=== PATIENT | female | born 1945 | race African-American/Black ===

== ENCOUNTER 2018-10-31 22:20 | Emergency (ER) | payer MEDICARE ==
[2018-10-31 23:02] LABS: Clarity Clear (Clear); Leukocyte Negative (Negative); Nitrite Negative (Negative); Protein, Urine (Dipstick) 100 mg/dL (Neg-Trace); pH, Urine 5.5 (5.0-9.0)
[2018-10-31 23:03] LABS: Bilirubin Negative (Negative); Blood, Urine Negative (Negative); Glucose, Urine (Dipstick) Negative (Negative); Urobilinogen 0.2 mg/dL (0.2-1.0)
[2018-10-31 23:05] LABS: #Basophils 0.2 thou/uL (0.0-0.2); #Lymphocytes 2.4 thou/uL (1.20-3.40); #Monocytes 1.1 thou/uL (0.11-0.59); #Neutrophils 16.2 thou/uL (1.40-6.50); %Basophils 0.9 % (0.0-1.0); %Eosinophils 0.2 % (0.0-10.0); %Lymphocytes 11.9 % (21.0-51.0); %Monocytes 5.4 % (0.0-10.0); %Neutrophils 81.5 % (42.0-75.0); Hemoglobin 12.8 g/dL (12.0-16.0); Mean Corpuscular HGB CONC 33.1 g/dL (32.0-36.0); Mean Corpuscular Hemoglobin 27.6 pg (27.0-31.0); Mean Corpuscular Volume 83.3 fL (78.0-98.0); Mean Platelet Volume 7.9 fL (7.4-10.4); Platelet Count 239 thou/uL (130-400); RBC Distribution Width 14.7 % (11.5-14.5); Red Blood Cell (RBC) Count 4.65 mill/uL (4.20-5.40); White Blood Cell (WBC) Count 19.9 thou/uL (4.8-10.8)
[2018-10-31 23:09] LABS: Bacteria/HPF Rare-Few HPF (None Seen); RBC/HPF 0-3 HPF (0-3); Squamous Epithelial 0-3 HPF (0-3); WBC/HPF 0-3 HPF (0-3)
[2018-10-31 23:10] LABS: Yeast-All Forms 1+ HPF (None Seen)
[2018-10-31 23:14] LABS: ALT (SGPT) 24 U/L (8-55); AST (SGOT) 23 U/L (5-34); Alkaline Phosphatase 109 U/L (40-150); Anion Gap 15 mmol/L (10-20); BUN (Urea Nitrogen) 23 mg/dL (9.8-20.1); Bilirubin, Total 0.4 mg/dL (0.2-1.2); Calc. Creatinine Clearance 0 mL/min (70-130); Calcium 9.8 mg/dL (7.8-10.44); Carbon Dioxide 27 mmol/L (23-31); Chloride 102 mmol/L (98-107); Estimated GFR-MDRD 43; Globulin 3.6 g/dL (2.4-3.5); Glucose 83 mg/dL (83-110); Potassium 3.5 mmol/L (3.5-5.1); Protein, Total 7.6 g/dL (6.0-8.3); Sodium 140 mmol/L (136-145)
--- NOTE | 2018-11-01 07:37 | RAD ---
PORTABLE CHEST: DATE: 10/31/2018. FINDINGS: An AP portable film at 2248 is compared with a 07/17/[address] [facility]. There has been no adverse interval change. The heart is normal in size and the lungs are clear. The re is no sign of pneumonia or pleural effusion. Calcification is noted in the aortic arch. The medi astinum appears normal. IMPRESSION: No acute thoracic finding. POS: HOME
== END 2018-11-01 00:05 | disposition home or self-care (01) ==
LOC: BURERS 22:20
DX: E11.649 Type 2 diabetes mellitus with hypoglycemia without coma (principal); I10 Essential (primary) hypertension; Z79.4 Long term (current) use of insulin; Z79.899 Other long term (current) drug therapy
CPT/HCPCS: 36416; 71045; 80053; 81003; 81015; 85025; 36415-59

== ENCOUNTER 2018-12-28 21:33 | Emergency (ER) | payer MEDICARE ==
[2018-12-28] MEDS ORDERED: Acetaminophen 500 MG TAB ONE (23:08)
--- NOTE | 2018-12-29 08:48 | CT ---
PRELIMINARY REPORT/[facility]/EMERGENCY AFTER HOURS PROCEDURE: EXAM: CT Head Without Contrast EXAM DATE/TIME: 12/28/2018 10:01 PM CLINICAL HISTORY: 73 years old, female; Injury or trauma; Fall; Initial encounter; Blunt trauma (contusions or hematoma s); Consciousness not specified; Injury date: 12/28/18 TECHNIQUE: Axial computed tomography images of the head/brain without contrast. All CT scans at this facility use at least one of these dose optimization techniques: automated expos ure control; mA and/or kV adjustment per patient size (includes targeted exams where dose is matched to clinical indication); or iterative reconstruction. COMPARISON: No relevant prior studies available. FINDINGS: Brain: No evidence of acute intracranial hemorrhage, extraxial fluid or midline shift. Mild low densi ty changes within the white matter bilaterally. Cerebellum atrophic; otherwise, posterior fossa struc tures within normal limits. Ventricles: Mild prominence of the cerebral sulci and ventricles. Bones/joints: Unremarkable. No acute fracture. Sinuses: Visualized sinuses are unremarkable. No acute sinusitis. Mastoid air cells: Visualized mastoid air cells are unremarkable. No mastoid effusion. Soft tissues: Unremarkable. IMPRESSION: 1. No evidence of acute intracranial hemorrhage, extraxial fluid or midline shift. 2. Mild cerebral atrophy. 3. 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 Thank you for allowing us to participate in the care of your patient. Dictated and Authenticated by: Germain Kenny MD 12/28/2018 10:53 PM Central Time ([place] & [place]) FINAL REPORT EMERGENCY AFTER HOURS BRAIN CT WITHOUT IV CONTRAST: Date: 12/28/18 Time: 2202 hours There is atrophy and chronic white matter ischemic change. No mass or bleed, or other acute process. Report in agreement with preliminary report given on-call by [facility]. POS: [facility]
--- NOTE | 2018-12-29 09:00 | RAD ---
LEFT KNEE 4 VIEWS: Date: 12/28/18 HISTORY: Injury. FINDINGS: Mild degenerative changes. No fracture, dislocation, or other acute process. IMPRESSION: Degenerative change without fracture or dislocation. POS: [facility]
== END 2018-12-28 23:14 | disposition home or self-care (01) ==
LOC: BURERS 21:33
DX: S09.90XA Unspecified injury of head, initial encounter (principal); S83.92XA Sprain of unspecified site of left knee, initial encounter; E11.9 Type 2 diabetes mellitus without complications; I10 Essential (primary) hypertension; Z87.891 Personal history of nicotine dependence; Z79.899 Other long term (current) drug therapy; W19.XXXA Unspecified fall, initial encounter
CPT/HCPCS: 70450

== ENCOUNTER 2019-01-10 10:50 | Emergency (ER) | payer MEDICARE ==
[2019-01-10] MEDS ORDERED: traMADol HCl 50 MG TAB ONE (11:50)
--- NOTE | 2019-01-10 12:43 | CT ---
CT CERVICAL SPINE: 01/10/2019 TECHNIQUE: A spiral CT of the cervical spine was done following trauma. Axial slices were acquired, followed by coronal and sagittal reconstructions. FINDINGS: No fracture, dislocation, or disk space narrowing is seen. The C1 to dens distance is normal, and th e soft tissues are normal in thickness. Findings by level follow: C1-C2: No acute findings. C2-C3: No acute findings. C3-C4: Some facet arthritis on the left. C4-C5: No acute findings. C5-C6: Facet arthritis slightly prominent on the left compared to the right. Mild concentric disk o steophyte complex is present. There is some mild bilateral foraminal narrowing. C6-C7: No acute findings. C7-T1: No acute findings. T1-T2: No acute findings. The lung apices are clear and show no pneumothorax. There is a lucent area in the right lobe of the thyroid gland and possibly some on the left. The largest lucency is in the lower pole of the right l obe and measures 1.2 cm in size. Multiple hypoechoic masses have been shown by prior CT and thyroid scanning in 2016. This size is certainly no larger than it was before. IMPRESSION: 1. Degenerative changes but no acute traumatic findings. 2. Thyroid nodules, notably in the right lobe. Known entities that have not grown since 2016. POS: [facility]
== END 2019-01-10 12:00 | disposition home or self-care (01) ==
LOC: BURERS 10:50
DX: S13.9XXA Sprain of joints and ligaments of unspecified parts of neck, initial encounter (principal); Z86.73 Personal history of transient ischemic attack (TIA), and cerebral infarction without residual deficits; E11.9 Type 2 diabetes mellitus without complications; Z79.4 Long term (current) use of insulin; I10 Essential (primary) hypertension; Z87.891 Personal history of nicotine dependence; Z79.899 Other long term (current) drug therapy; W18.30XA Fall on same level, unspecified, initial encounter
CPT/HCPCS: 72125

== ENCOUNTER 2019-03-08 14:27 | Emergency (ER) | payer MEDICARE ==
--- NOTE | 2019-03-08 18:28 | RAD ---
PELVIS ONE VIEW: 03/08/19 No fracture or area of bony destruction was seen. There is slight narrowing of each hip joint but it is symmetrical. The pubic rings are intact. The symphysis shows no widening or off-set. The SI joints are symmetrical. IMPRESSION: No acute finding. POS: HOME
--- NOTE | 2019-03-08 18:29 | RAD ---
LEFT FEMUR: 03/08/19 AP and lateral views show no sign of fracture or bony destruction. The hip joint is narrowed but no d ifferent than the opposite side. There is some ossification in some of the ligaments attaching to the greater trochanter. There is no sign of joint fluid at the knee. IMPRESSION: No acute bony finding. POS: HOME
== END 2019-03-08 16:11 | disposition home or self-care (01) ==
LOC: BURERS 14:27
DX: S76.911A Strain of unspecified muscles, fascia and tendons at thigh level, right thigh, initial encounter (principal); Z86.73 Personal history of transient ischemic attack (TIA), and cerebral infarction without residual deficits; E11.9 Type 2 diabetes mellitus without complications; Z79.4 Long term (current) use of insulin; I10 Essential (primary) hypertension; Z87.891 Personal history of nicotine dependence; Z79.899 Other long term (current) drug therapy; W18.30XA Fall on same level, unspecified, initial encounter
CPT/HCPCS: 72170

== ENCOUNTER 2019-05-10 21:10 | Emergency (ER) | payer MEDICARE ==
[2019-05-10 21:53] LABS: ALT (SGPT) 41 U/L (8-55); AST (SGOT) 90 U/L (5-34); Albumin 4.1 g/dL (3.4-4.8); Alkaline Phosphatase 122 U/L (40-150); Anion Gap 20 mmol/L (10-20); BUN (Urea Nitrogen) 19 mg/dL (9.8-20.1); Bilirubin, Total 0.9 mg/dL (0.2-1.2); CK (CPK) 3116 U/L (29-168); Calc. Creatinine Clearance 0 mL/min (70-130); Calcium 9.9 mg/dL (7.8-10.44); Carbon Dioxide 22 mmol/L (23-31); Chloride 103 mmol/L (98-107); Estimated GFR-MDRD 53; Globulin 3.8 g/dL (2.4-3.5); Glucose 156 mg/dL (83-110); Potassium 4.3 mmol/L (3.5-5.1); Protein, Total 7.9 g/dL (6.0-8.3); Sodium 141 mmol/L (136-145)
--- NOTE | 2019-05-10 21:53 | CT ---
CT HEAD WITHOUT CONTRAST: 05/10/19 INDICATIONS: Found down. Slurred speech. COMPARISON: 12/28/18. Mild ventriculomegaly is again noted, unchanged. Moderate chronic ischemic white matter changes are a gain noted and appear stable. No evidence of hemorrhage, infarct, or mass. No interval change apparen t. Sinuses appear clear. IMPRESSION: Ventriculomegaly and chronic ischemic white matter changes appear stable from the recent study. No ac [place] interval change noted. POS: [facility]
[2019-05-10] MEDS ORDERED: Aspirin Chewable 81 MG TAB ONE (22:04)
[2019-05-10 22:08] LABS: Anisocytosis SLIGHT = 6-15 cells (100X) (0-5/hpf); Eosinophils 2 % (0-10); Hemoglobin 13.7 g/dL (12.0-16.0); Lymphocytes 13 % (21-51); MDiff Complete? YES; Mean Corpuscular HGB CONC 31.8 g/dL (32.0-36.0); Mean Corpuscular Hemoglobin 27.3 pg (27.0-31.0); Mean Platelet Volume 7.3 fL (7.4-10.4); Monocytes 6 % (0-10); Neutrophil 79 % (42-75); Platelet Count 307 thou/uL (130-400); Platelet Morphology Comment Appears Adequate; RBC Distribution Width 15.2 % (11.5-14.5); Red Blood Cell (RBC) Count 5.01 mill/uL (4.20-5.40); White Blood Cell (WBC) Count 17.9 thou/uL (4.8-10.8)
[2019-05-10 22:17] LABS: Bilirubin Small (Negative); Blood, Urine Moderate (Negative); Clarity Cloudy (Clear); Glucose, Urine (Dipstick) Negative (Negative); Leukocyte Small (Negative); Nitrite Negative (Negative); Protein, Urine (Dipstick) > or equal to 300 mg/dL (Neg-Trace); Urobilinogen 0.2 mg/dL (Less than 2)
--- NOTE | 2019-05-10 22:19 | RAD ---
PORTABLE CHEST: 05/10/19 HISTORY: Fall with injury. Lungs appear clear. Heart and mediastinum unremarkable. Osseous structures appear intact. IMPRESSION: No acute abnormality. POS: [facility]
[2019-05-10 22:22] LABS: Squamous Epithelial 0-3 HPF (0-3)
[2019-05-10 22:23] LABS: Bacteria/HPF 2+ HPF (None Seen); Yeast-Budding 4+ HPF (None Seen)
[2019-05-10 22:26] LABS: CKMB 32.6 ng/mL (0-6.6)
--- NOTE | 2019-05-10 22:32 | RAD ---
RIGHT HUMERUS: 05/10/19 Two views. HISTORY: Fall with injury. FINDINGS/IMPRESSION: Degenerative changes of the shoulder with spurring from the humeral head and AC joint. Numerous radio paque pledgets in the humeral head indicate rotator cuff repair. No fracture or acute abnormality bryan ntified. POS: [facility]
== END 2019-05-10 22:46 | disposition short-term general hospital (02) ==
LOC: BURERS 21:10
DX: I21.4 Non-ST elevation (NSTEMI) myocardial infarction (principal); M62.82 Rhabdomyolysis; E11.9 Type 2 diabetes mellitus without complications; I10 Essential (primary) hypertension; F17.210 Nicotine dependence, cigarettes, uncomplicated; Z79.4 Long term (current) use of insulin; Z79.899 Other long term (current) drug therapy; Z86.73 Personal history of transient ischemic attack (TIA), and cerebral infarction without residual deficits; W19.XXXA Unspecified fall, initial encounter
CPT/HCPCS: 36416; 51701; 70450; 71045; 80053; 81003; 81015; 82550; 82553; 83605; 84484; 85025; 87086; 93005; A4353

== ENCOUNTER 2019-05-16 16:58 | Inpatient (IN) | payer MEDICARE ==
[2019-05-17] MEDS ORDERED: Dextrose 50% Abboject 50 ML SYRINGE SLOW IVP PRN ×2 (06:23→06:26)
[2019-05-17] MEDS ORDERED: Dextrose 5% in Water 1,000 ML IV PRN ×2 (06:23→06:26)
[2019-05-17] MEDS ORDERED: CHOLECALCIFEROL PO SCH (09:00)
[2019-05-17] MEDS ORDERED: INSULIN DEGLUDEC 30 UNIT SQ SCH (09:00)
[2019-05-17] MEDS: Levothyroxine Sodium 50 MCG TAB PO SCH (09:28)
[2019-05-17] MEDS: hydrALAZINE 25 MG TAB PO SCH ×3 (09:29→21:15)
[2019-05-17] MEDS: cloNIDine 0.1 MG TAB PO SCH ×2 (09:31→21:16)
[2019-05-17] MEDS: Oxybutynin 5 MG TAB PO SCH ×2 (09:31→21:16)
[2019-05-17] MEDS: Fluconazole 100 MG TAB PO SCH (09:31)
[2019-05-17] MEDS: Aspirin 325 mg Enteric Coated Tablet PO SCH (09:32)
[2019-05-17] MEDS: Carvedilol 6.25 MG TAB PO SCH ×2 (09:34→21:16)
[2019-05-17] MEDS: Polyethylene Glycol 3350 17 GM Packet PO PRN (09:44)
[2019-05-17] MEDS: Docusate 100 MG CAP PO PRN (09:44)
[2019-05-17] MEDS: TRESIBA U SC SCH ×2 (11:12→13:09)
[2019-05-17] MEDS: Acetaminophen 325 MG TAB PO PRN (13:03)
[2019-05-17] MEDS: HumaLOG 300 UNITS/3 ML VIAL SC PRN ×2 (13:10→18:28)
[2019-05-17] MEDS: Atorvastatin Calcium 40 MG TAB PO SCH (21:16)
[2019-05-18] MEDS: hydrALAZINE 25 MG TAB PO SCH ×3 (08:52→20:36)
[2019-05-18] MEDS: Fluconazole 100 MG TAB PO SCH (08:52)
[2019-05-18] MEDS: Oxybutynin 5 MG TAB PO SCH ×2 (08:52→20:37)
[2019-05-18] MEDS: Aspirin 325 mg Enteric Coated Tablet PO SCH (08:52)
[2019-05-18] MEDS: cloNIDine 0.1 MG TAB PO SCH ×2 (08:53→20:37)
[2019-05-18] MEDS: Levothyroxine Sodium 50 MCG TAB PO SCH (08:53)
[2019-05-18] MEDS: Carvedilol 6.25 MG TAB PO SCH ×2 (08:53→20:37)
[2019-05-18] MEDS: TRESIBA U SC SCH (09:02)
[2019-05-18] MEDS: Atorvastatin Calcium 40 MG TAB PO SCH (20:36)
[2019-05-18] MEDS: Acetaminophen 325 MG TAB PO PRN (20:37)
[2019-05-19] MEDS: TRESIBA U SC SCH ×2 (08:26→09:00)
[2019-05-19] MEDS: Fluconazole 100 MG TAB PO SCH (08:27)
[2019-05-19] MEDS: Oxybutynin 5 MG TAB PO SCH ×2 (08:27→20:28)
[2019-05-19] MEDS: Levothyroxine Sodium 50 MCG TAB PO SCH (08:27)
[2019-05-19] MEDS: Aspirin 325 mg Enteric Coated Tablet PO SCH (08:27)
[2019-05-19] MEDS: hydrALAZINE 25 MG TAB PO SCH ×3 (08:31→20:27)
[2019-05-19] MEDS: Carvedilol 6.25 MG TAB PO SCH ×2 (08:32→20:27)
[2019-05-19] MEDS: Acetaminophen 325 MG TAB PO PRN ×2 (08:37→18:06)
[2019-05-19] MEDS: HumaLOG 300 UNITS/3 ML VIAL SC PRN ×3 (08:38→17:26)
[2019-05-19] MEDS: cloNIDine 0.1 MG TAB PO SCH ×2 (08:50→20:28)
[2019-05-19] MEDS: Atorvastatin Calcium 40 MG TAB PO SCH (20:29)
[2019-05-20] MEDS: Carvedilol 6.25 MG TAB PO SCH ×2 (08:11→20:26)
[2019-05-20] MEDS: Levothyroxine Sodium 50 MCG TAB PO SCH (08:11)
[2019-05-20] MEDS: Aspirin 325 mg Enteric Coated Tablet PO SCH (08:11)
[2019-05-20] MEDS: cloNIDine 0.1 MG TAB PO SCH ×2 (08:12→20:25)
[2019-05-20] MEDS: hydrALAZINE 25 MG TAB PO SCH ×3 (08:12→20:26)
[2019-05-20] MEDS: Fluconazole 100 MG TAB PO SCH (08:13)
[2019-05-20] MEDS: Oxybutynin 5 MG TAB PO SCH ×2 (08:13→20:25)
[2019-05-20] MEDS: TRESIBA U SC SCH ×2 (08:33→08:45)
[2019-05-20] MEDS: HumaLOG 300 UNITS/3 ML VIAL SC PRN ×2 (12:33→17:13)
--- NOTE | 2019-05-20 19:52 | HP ---
CHIEF COMPLAINT: Inpatient rehabilitation for physical and occupational therapy. HISTORY OF PRESENT ILLNESS: Ms. Blair is a 74-year-old female with progressive dementia, with multiple falls, history of TIA, diabetes mellitus, non-insulin requiring and hypertension. The patient was found down on May 11, 2019 at home. Initial workup at the emergency room showed elevated creatine kinase with normal EKG, with concern for possible non ST-segment elevation DE, she had a normal echocardiogram in 2014 with no previous cardiac history of DE. The patient was admitted for rhabdomyolysis with possible non ST-segment elevation myocardial infarction and urinary tract infection. Labs showed a normal comprehensive metabolic panel with abnormal urinalysis. She had a normal CT scan of maxillofacial. However, brain CT scan showed ventriculomegaly with chronic ischemic white matter changes. Chest x-ray was normal. Right humeral showed degenerative changes with spurring. The patient was subsequently seen by Cardiology, repeat labs showed elevated troponin, CK and CK-MB with rhabdomyolysis. EKG did not show ST-segment elevation DE. Echocardiogram on 05/11 showed ejection fraction of 50% to 55% with diastolic dysfunction with mild mitral regurgitation, aortic regurgitation, and tricuspid regurgitation. During her hospitalization, she was treated for UTI, culture grew yeast and subsequently changed to antifungal medication. Her rhabdomyolysis improved with IV fluid therapy. The patient was referred for extended nursing home care with physical and occupational therapy. Prior to her transfer, the patient was ambulating 50 feet using rolling walker with contact guard assist, she has significant gait instability, decreased balance, decreased endurance and strength, hence this admission. This afternoon, she denies any complaints. PAST MEDICAL HISTORY: 1. History of TIA. 2. Advancing dementia. 3. Gxu-[id number]-hlavkhufa diabetes mellitus. 4. Hypertension. PAST SURGICAL HISTORY: 1. Appendectomy. 2. Hysterectomy. 3. Left shoulder surgery. 4. Right shoulder surgery. 5. Left carpal tunnel release. SOCIAL HISTORY: The patient lives alone. She smokes in the past, quit 10 years ago. She has children who are alive and well. FAMILY HISTORY: Noncontributory. MEDICATIONS: 1. Aspirin 325 mg daily. 2. Lipitor 40 mg at bedtime. 3. Carvedilol 6.25 mg b.i.d. 4. Cholecalciferol 1000 units daily. 5. Clonidine 0.1 mg b.i.d. 6. Fluconazole 100 mg daily. 7. Hydralazine 100 mg t.i.d. 8. Levothyroxine 50 mcg daily. 9. Oxybutynin 5 mg b.i.d. 10. Protonix 40 mg b.i.d. 11. MiraLAX 17 g daily p.r.n. for constipation. 12. Tylenol 650 mg daily. ALLERGIES: PENICILLIN. CODE STATUS: Full code. REVIEW OF SYSTEMS: CONSTITUTIONAL: Negative for fever, chills, unintentional weight gain or unintentional weight loss. ENT: Negative for epistaxis or bleeding gums. Negative for sore throat. CARDIOVASCULAR: Negative for chest pain. Negative for edema. RESPIRATORY: Negative for hemoptysis. Negative for wheezing. GASTROINTESTINAL: Negative for hematochezia or melena. Positive for constipation. GENITOURINARY: Negative for dysuria or hematuria. MUSCULOSKELETAL: Positive for occasional arthralgias, back pain, and myalgias. INTEGUMENT: Negative for jaundice or rash. NEUROLOGIC: Positive for history of questionable syncope, negative for headaches. Negative for paresthesias. Positive for weakness. HEMATOLOGIC: Negative for bruising, bleeding, or lymphadenopathy. ALLERGIC/IMMUNOLOGIC: Negative for seasonal allergies or urticaria. PSYCHIATRIC: Negative for anxiety, depression or sleep disturbances. PHYSICAL EXAMINATION: VITAL SIGNS: Blood pressure of 118/59, temperature of 98.1, pulse of 60, R of 18, O2 saturation 98% on room air. GENERAL: The patient is alert, oriented x2 (person and place). HEENT: Normocephalic, atraumatic. Pupils equal, reactive to light. NECK: Supple. Negative for lymphadenopathy. CHEST AND LUNGS: Symmetrical expansion. Clear to auscultation. HEART: Regular rate, rhythm. Negative for murmur. ABDOMEN: Obese, soft, nontender. Normoactive bowel sounds. Negative for CVA tenderness. EXTREMITIES: Symmetrical movement of both upper and lower extremities. PSYCH: Appropriate affect and demeanor. LABS AND IMAGING: Reviewed. ASSESSMENT: 1. Physical deconditioning. 2. Rhabdomyolysis. 3. Type 2 myocardial infarction. 4. Urinary tract infection secondary to yeast infection. 5. Metabolic encephalopathy, resolved. 6. Hypokalemia, corrected. 7. Hypothyroidism. 8. Hypertension. 9. Advancing dementia. 10. Gastroesophageal reflux disease. 11. Diabetes mellitus, non-insulin requiring. 12. Multiple falls. 13. Chronic kidney disease stage 2. PLAN: The patient admitted for nursing home care with physical and occupational therapy after hospitalization secondary to rhabdomyolysis, non ST-segment elevation DE and urinary tract infection. Prognosis for significant improvement with reasonable time appears fair. The patient will participate with physical and occupational therapy to address strength, range of motion, transfer training, gait transfer, family training and safety training with progression to home exercises. We will reconcile hospital medication and adjust dosages prior to her discharge. manager company to address how the patient can be discharged safely and in timely manner. Job ID: [id number]
[2019-05-20] MEDS: Atorvastatin Calcium 40 MG TAB PO SCH (20:26)
[2019-05-21] MEDS: Carvedilol 6.25 MG TAB PO SCH ×2 (08:30→20:32)
[2019-05-21] MEDS: Fluconazole 100 MG TAB PO SCH (08:30)
[2019-05-21] MEDS: Docusate 100 MG CAP PO PRN (08:30)
[2019-05-21] MEDS: cloNIDine 0.1 MG TAB PO SCH ×2 (08:30→20:31)
[2019-05-21] MEDS: Oxybutynin 5 MG TAB PO SCH ×2 (08:30→20:32)
[2019-05-21] MEDS: Levothyroxine Sodium 50 MCG TAB PO SCH (08:30)
[2019-05-21] MEDS: Aspirin 325 mg Enteric Coated Tablet PO SCH (08:30)
[2019-05-21] MEDS: TRESIBA U SC SCH (08:35)
[2019-05-21] MEDS: hydrALAZINE 25 MG TAB PO SCH ×3 (09:08→20:32)
[2019-05-21] MEDS: HumaLOG 300 UNITS/3 ML VIAL SC PRN ×2 (12:40→17:32)
[2019-05-21] MEDS: Atorvastatin Calcium 40 MG TAB PO SCH (20:31)
[2019-05-22] MEDS: Oxybutynin 5 MG TAB PO SCH ×2 (08:23→20:46)
[2019-05-22] MEDS: cloNIDine 0.1 MG TAB PO SCH ×2 (08:24→20:46)
[2019-05-22] MEDS: Aspirin 325 mg Enteric Coated Tablet PO SCH (08:24)
[2019-05-22] MEDS: Docusate 100 MG CAP PO PRN (08:24)
[2019-05-22] MEDS: hydrALAZINE 25 MG TAB PO SCH ×3 (08:26→20:46)
[2019-05-22] MEDS: Levothyroxine Sodium 50 MCG TAB PO SCH (08:27)
[2019-05-22] MEDS: Carvedilol 6.25 MG TAB PO SCH ×2 (08:27→20:46)
[2019-05-22] MEDS: TRESIBA U SC SCH (08:34)
[2019-05-22] MEDS: Fluconazole 100 MG TAB PO SCH (09:13)
[2019-05-22] MEDS: HumaLOG 300 UNITS/3 ML VIAL SC PRN (14:43)
[2019-05-22] MEDS: Atorvastatin Calcium 40 MG TAB PO SCH (20:45)
[2019-05-23] MEDS: Aspirin 325 mg Enteric Coated Tablet PO SCH (08:53)
[2019-05-23] MEDS: Fluconazole 100 MG TAB PO SCH (08:53)
[2019-05-23] MEDS: Docusate 100 MG CAP PO PRN (08:53)
[2019-05-23] MEDS: Polyethylene Glycol 3350 17 GM Packet PO PRN (08:53)
[2019-05-23] MEDS: Oxybutynin 5 MG TAB PO SCH ×2 (08:54→22:01)
[2019-05-23] MEDS: Levothyroxine Sodium 50 MCG TAB PO SCH (08:54)
[2019-05-23] MEDS: cloNIDine 0.1 MG TAB PO SCH ×2 (08:55→22:00)
[2019-05-23] MEDS: hydrALAZINE 25 MG TAB PO SCH ×3 (08:55→21:59)
[2019-05-23] MEDS: TRESIBA U SC SCH (08:56)
[2019-05-23] MEDS: Carvedilol 6.25 MG TAB PO SCH ×2 (08:56→22:00)
[2019-05-23] MEDS: HumaLOG 300 UNITS/3 ML VIAL SC PRN (12:33)
[2019-05-23] MEDS ORDERED: hydrALAZINE 10 MG TAB PO SCH (21:30)
[2019-05-23] MEDS: Atorvastatin Calcium 40 MG TAB PO SCH (22:00)
[2019-05-24] MEDS: Carvedilol 6.25 MG TAB PO SCH ×2 (08:57→21:00)
[2019-05-24] MEDS: Aspirin 325 mg Enteric Coated Tablet PO SCH (08:57)
[2019-05-24] MEDS: cloNIDine 0.1 MG TAB PO SCH ×2 (08:58→21:04)
[2019-05-24] MEDS: Oxybutynin 5 MG TAB PO SCH ×2 (08:59→21:00)
[2019-05-24] MEDS: TRESIBA U SC SCH (08:59)
[2019-05-24] MEDS: Fluconazole 100 MG TAB PO SCH (08:59)
[2019-05-24] MEDS: Levothyroxine Sodium 50 MCG TAB PO SCH (08:59)
[2019-05-24] MEDS: hydrALAZINE 25 MG TAB PO SCH ×3 (12:08→21:26)
[2019-05-24] MEDS: HumaLOG 300 UNITS/3 ML VIAL SC PRN (12:29)
[2019-05-24] MEDS: Atorvastatin Calcium 40 MG TAB PO SCH (21:00)
[2019-05-24] MEDS ORDERED: hydrALAZINE 20 MG/ML VIAL ONE (21:17)
[2019-05-24] MEDS ORDERED: hydrOXYzine 25 MG TAB ONE ×2 (21:17→21:19)
[2019-05-25] MEDS: TRESIBA U SC SCH ×2 (08:28→08:35)
[2019-05-25] MEDS: Oxybutynin 5 MG TAB PO SCH ×2 (08:29→20:50)
[2019-05-25] MEDS: Docusate 100 MG CAP PO PRN (08:32)
[2019-05-25] MEDS: Aspirin 325 mg Enteric Coated Tablet PO SCH (08:32)
[2019-05-25] MEDS: Levothyroxine Sodium 50 MCG TAB PO SCH (08:32)
[2019-05-25] MEDS: Fluconazole 100 MG TAB PO SCH (08:36)
[2019-05-25] MEDS: hydrALAZINE 25 MG TAB PO SCH ×3 (08:44→20:51)
[2019-05-25] MEDS: cloNIDine 0.1 MG TAB PO SCH ×2 (08:45→20:51)
[2019-05-25] MEDS: Carvedilol 6.25 MG TAB PO SCH ×2 (08:45→20:51)
[2019-05-25] MEDS: HumaLOG 300 UNITS/3 ML VIAL SC PRN ×2 (12:57→17:19)
[2019-05-25] MEDS ORDERED: Losartan Potassium 50 MG TAB PO SCH (13:15)
[2019-05-25] MEDS: Atorvastatin Calcium 40 MG TAB PO SCH (20:51)
[2019-05-26] MEDS: Carvedilol 6.25 MG TAB PO SCH ×2 (09:51→21:22)
[2019-05-26] MEDS: Aspirin 325 mg Enteric Coated Tablet PO SCH (09:51)
[2019-05-26] MEDS: cloNIDine 0.1 MG TAB PO SCH ×2 (09:52→21:22)
[2019-05-26] MEDS: hydrALAZINE 25 MG TAB PO SCH ×3 (09:53→21:21)
[2019-05-26] MEDS: Levothyroxine Sodium 50 MCG TAB PO SCH (09:53)
[2019-05-26] MEDS: Oxybutynin 5 MG TAB PO SCH ×2 (09:54→21:22)
[2019-05-26] MEDS: HumaLOG 300 UNITS/3 ML VIAL SC PRN (17:37)
[2019-05-26] MEDS: Atorvastatin Calcium 40 MG TAB PO SCH (21:22)
[2019-05-27] MEDS: Aspirin 325 mg Enteric Coated Tablet PO SCH (09:05)
[2019-05-27] MEDS: hydrALAZINE 25 MG TAB PO SCH ×3 (09:05→20:58)
[2019-05-27] MEDS: Oxybutynin 5 MG TAB PO SCH ×2 (09:06→20:59)
[2019-05-27] MEDS: Carvedilol 6.25 MG TAB PO SCH ×2 (09:06→21:00)
[2019-05-27] MEDS: Levothyroxine Sodium 50 MCG TAB PO SCH (09:06)
[2019-05-27] MEDS: cloNIDine 0.1 MG TAB PO SCH ×2 (09:07→20:59)
[2019-05-27] MEDS: TRESIBA U SC SCH (09:09)
[2019-05-27] MEDS: HumaLOG 300 UNITS/3 ML VIAL SC PRN (12:52)
[2019-05-27] MEDS: Atorvastatin Calcium 40 MG TAB PO SCH (20:59)
[2019-05-28 05:08] VITALS: BMI 27.2
[2019-05-28 05:27] LABS: #Basophils 0.1 thou/uL (0.0-0.2); #Eosinphils 0.2 thou/uL (0.0-0.7); #Lymphocytes 2.7 thou/uL (1.20-3.40); #Monocytes 0.8 thou/uL (0.11-0.59); #Neutrophils 6.2 thou/uL (1.40-6.50); %Basophils 0.6 % (0.0-1.0); %Eosinophils 1.8 % (0.0-10.0); %Lymphocytes 27.5 % (21.0-51.0); %Neutrophils 62.1 % (42.0-75.0); Hemoglobin 11.5 g/dL (12.0-16.0); Mean Corpuscular Volume 86.9 fL (78.0-98.0); Mean Platelet Volume 8.3 fL (7.4-10.4); Platelet Count 267 thou/uL (130-400); RBC Distribution Width 15.1 % (11.5-14.5); Red Blood Cell (RBC) Count 4.26 mill/uL (4.20-5.40); White Blood Cell (WBC) Count 9.9 thou/uL (4.8-10.8)
[2019-05-28 05:35] LABS: ALT (SGPT) 44 U/L (8-55); AST (SGOT) 40 U/L (5-34); Albumin 3.3 g/dL (3.4-4.8); Alkaline Phosphatase 95 U/L (40-150); Anion Gap 13 mmol/L (10-20); BUN (Urea Nitrogen) 20 mg/dL (9.8-20.1); Bilirubin, Total 0.3 mg/dL (0.2-1.2); Calc. Creatinine Clearance 46 mL/min (70-130); Calcium 9.3 mg/dL (7.8-10.44); Carbon Dioxide 26 mmol/L (23-31); Chloride 108 mmol/L (98-107); Estimated GFR-MDRD 46; Globulin 3.4 g/dL (2.4-3.5); Glucose 60 mg/dL (83-110); Potassium 3.6 mmol/L (3.5-5.1); Protein, Total 6.7 g/dL (6.0-8.3); Sodium 143 mmol/L (136-145)
[2019-05-28] MEDS: hydrALAZINE 25 MG TAB PO SCH ×3 (08:45→21:21)
[2019-05-28] MEDS: Carvedilol 6.25 MG TAB PO SCH ×2 (08:46→21:22)
[2019-05-28] MEDS: Levothyroxine Sodium 50 MCG TAB PO SCH (08:46)
[2019-05-28] MEDS: cloNIDine 0.1 MG TAB PO SCH ×2 (08:47→21:22)
[2019-05-28] MEDS: Oxybutynin 5 MG TAB PO SCH ×2 (08:47→21:23)
[2019-05-28] MEDS: Aspirin 325 mg Enteric Coated Tablet PO SCH (08:47)
[2019-05-28] MEDS: TRESIBA U SC SCH (08:48)
[2019-05-28 12:15] LABS: Hemoglobin A1c 8.3 % (4.0-6.0)
[2019-05-28] MEDS: HumaLOG 300 UNITS/3 ML VIAL SC PRN (13:07)
[2019-05-28] MEDS: Atorvastatin Calcium 40 MG TAB PO SCH (21:23)
[2019-05-29 09:05] LABS: Glucose 51 mg/dL (83-110)
[2019-05-29] MEDS: Levothyroxine Sodium 50 MCG TAB PO SCH (09:31)
[2019-05-29] MEDS ORDERED: Lantus 1000 UNITS/10 ML VIAL SC SCH (10:30)
[2019-05-29] MEDS: hydrALAZINE 25 MG TAB PO SCH ×3 (10:32→21:21)
[2019-05-29] MEDS: Aspirin 325 mg Enteric Coated Tablet PO SCH (10:32)
[2019-05-29] MEDS: Oxybutynin 5 MG TAB PO SCH ×3 (10:33→21:22)
[2019-05-29] MEDS: cloNIDine 0.1 MG TAB PO SCH ×2 (10:33→21:22)
[2019-05-29] MEDS: Carvedilol 6.25 MG TAB PO SCH ×2 (10:34→21:22)
[2019-05-29] MEDS ORDERED: TRESIBA U SC SCH (10:45)
[2019-05-29] MEDS: TRESIBA U SC SCH (11:11)
[2019-05-29] MEDS: HumaLOG 300 UNITS/3 ML VIAL SC PRN (13:10)
[2019-05-29] MEDS: Atorvastatin Calcium 40 MG TAB PO SCH (21:21)
[2019-05-30 06:03] VITALS: TEMP 98
[2019-05-30] MEDS ORDERED: TRESIBA U SC SCH (09:00)
[2019-05-30] MEDS: Carvedilol 6.25 MG TAB PO SCH (10:00)
[2019-05-30] MEDS: hydrALAZINE 25 MG TAB PO SCH ×2 (10:00→15:00)
[2019-05-30] MEDS: Aspirin 325 mg Enteric Coated Tablet PO SCH (10:00)
[2019-05-30] MEDS: cloNIDine 0.1 MG TAB PO SCH (10:00)
[2019-05-30] MEDS: Levothyroxine Sodium 50 MCG TAB PO SCH (10:00)
[2019-05-30 10:37] VITALS: BP 191/77
== END 2019-05-30 16:00 | disposition home or self-care (01) | DRG 557 ==
LOC: BURMED 22:26
PROVIDERS: ADMIT Family Medicine; ATTEND Family Medicine
DX: M62.82 Rhabdomyolysis (principal); I21.A1 Myocardial infarction type 2; G93.41 Metabolic encephalopathy; B37.49 Other urogenital candidiasis; E87.6 Hypokalemia; E03.9 Hypothyroidism, unspecified; F03.90 Unspecified dementia, unspecified severity, without behavioral disturbance, psychotic disturbance, mood disturbance, and anxiety; K21.9 Gastro-esophageal reflux disease without esophagitis; N18.2 Chronic kidney disease, stage 2 (mild); R29.6 Repeated falls; I08.3 Combined rheumatic disorders of mitral, aortic and tricuspid valves; R53.81 Other malaise; I12.9 Hypertensive chronic kidney disease with stage 1 through stage 4 chronic kidney disease, or unspecified chronic kidney disease; E11.22 Type 2 diabetes mellitus with diabetic chronic kidney disease; Z86.73 Personal history of transient ischemic attack (TIA), and cerebral infarction without residual deficits; Z90.49 Acquired absence of other specified parts of digestive tract; Z90.710 Acquired absence of both cervix and uterus; Z98.890 Other specified postprocedural states; Z87.891 Personal history of nicotine dependence; Z79.82 Long term (current) use of aspirin; Z79.899 Other long term (current) drug therapy; Z88.0 Allergy status to penicillin
CPT/HCPCS: 36415; 36416; 80053; 82947; 83036; 85025; J0360